=== PATIENT | male | born 1960 | race Caucasian/White ===

== ENCOUNTER 2018-11-22 08:10 | Observation (INO) | payer BC ==
[~2018-11-22] VITALS: Ht 180.3 cm; Wt 103.2 kg
--- OUTSIDE RECORDS SUMMARY | 2018-11-22 08:12 | XMS REPORT ---
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
--- OUTSIDE RECORDS SUMMARY | 2018-11-22 08:12 | XMS REPORT ---
Author Mayito Simmons Organization [employer] Address Unknown Phone Unavailable Care Team Providers Care Network Announcer Name Role Phone Mayito Rodriguez CP Unavailable Allergies No Known Allergies Problems Problem Type Condition Code Onset Dates Condition Status Problem Rheumatoid arthritis of multiple sites without rheumatoid factor M06.09 Active Problem Other manager entry (current) drug therapy Z79.899 Active Problem Neck pain M54.2 Active Problem Hypothyroidism E03.9 Active Medications No Known Medications Results No Known Results Summary Purpose [employer] Submission
--- OUTSIDE RECORDS SUMMARY | 2018-11-22 08:12 | XMS REPORT ---
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
--- OUTSIDE RECORDS SUMMARY | 2018-11-22 08:12 | XMS REPORT | Continuity of Care Document ---
Author Author [facility] Address Unknown Phone Unavailable Problems Problem Status Onset Date Classification Date Reported Comments Source Rheumatoid arthritis of multiple sites without rheumatoid factor Active Diagnosis 08/31/2018 Emilio Rodriguez Other shelter drug therapy Active Problem 08/31/2018 Emilio Rodriguez Neck pain Active Problem 08/31/2018 Emilio Rodriguez Hypothyroidism Active Diagnosis 08/31/2018 Emilio Rodriguez Hand pain, left Active Diagnosis 05/09/2017 Emilio Rodriguez Hand pain, right Active Diagnosis 05/09/2017 Emilio Rodriguez Encounter for screening for malignant neoplasm of prostate Active Diagnosis 08/31/2018 Emilio Rodriguez Long-term use of other medications - High Risk Active Problem 10/28/2015 Emilio Rodriguez Rheumatoid arthritis Active Problem 10/28/2015 Emilio Rodriguez Pain, neck Active Problem 10/28/2015 Emilio Rodriguez Unspecified vitamin D deficiency Active Problem 10/28/2015 Emilio Rodriguez Medications Medication Details Route Status Patient Instructions Ordering Provider Order Date Source Ibuprofen TAKE 1 TABLET BY MOUTH WITH FOOD OR MILK 3 TIMES DAILY NEEDED Orally Active 600 MG Orally Three times a day [place] 01/29/2018 Emilio Rodriguez Folic Acid 1 tablet Orally Active 1MG Orally Once a day [place] 01/19/2017 Emilio Rodriguez Ibuprofen 1 tablet as needed Orally Active 600MG Milligram Orally every 6 hrs [place] 07/20/2016 Emilio Rodriguez Folic Acid 1 tablet Orally Active 1MG Orally Once a day [place] 10/04/2015 Emilio Rodriguez Methotrexate 6 tablets Orally Active 2.5mg Orally Once a week [place] 10/04/2015 Emilio Rodriguez Ibuprofen 1 tablet as needed Orally Active 600MG Milligram Orally every 6 hrs [place] 10/04/2015 Emilio Rodriguez [place] 3-6-9 Fatty Acids as directed Orally Active 400 MG Orally Once a day [place] Emilio Rodriguez Synthroid 1 tablet Orally Active 175 MCG Orally Once a day [place] mEilio Rodriguez Folic Acid 1 tablet Orally Active 1MG Orally Once a day [place] Emilio Rodriguez Ibuprofen TAKE 1 TABLET BY MOUTH WITH FOOD OR MILK 3 TIMES DAILY NEEDED Orally Active 600 MG Orally Three times a day Rodriguez Emilio Rodriguez Ibuprofen 1 tablet with food or milk as needed Orally Active 600 MG Orally Three times a day Michael Rodriguez Synthroid 1 tablet Orally Active 175 MCG Orally Once a day Rodriguez Emilio Rodriguez [place] 3-6-9 Fatty Acids as directed Orally Active 400 MG Orally Twice a day Rodriguez Emilio Rodriguez Folic Acid 1 tablet Orally Active 1 MG Orally Once a day [place] Emilio Rodriguez Ibuprofen 1 tablet as needed Orally Active 600MG Milligram Orally every 6 hrs Rodriguez Emilio Rodriguez Methotrexate 4 tablets Orally Active 2.5 MG Orally Once a week Rodriguez Emilio Rodriguez Allergies, Adverse Reactions, Alerts Substance Category Reaction Severity Reaction type Status Date Reported Comments Source Humira Adverse Reaction infections Adverse Reaction Active 08/21/2018 Emilio Rodriguez Codeine Adverse Reaction Info Not Available Adverse Reaction Active 08/21/2018 Emilio Rodriguez Immunizations Immunization Date Given Site Status Last Updated Comments Source Results Order Name Results Value Reference Range Date Interpretation Comments Source Vital Signs Vital Sign Value Date Comments Source Weight 226 08/21/2018 Emilio Rodriguez Height 72 08/21/2018 Emilio Rodriguez Temperature Oral (F) 96.8 F 08/21/2018 Emilio Rodriguez Heart Rate 68 08/21/2018 Emilio Rodriugez Diastolic (mm Hg) 82 08/21/2018 Emilio Rodriguez Systolic (mm Hg) 126 08/21/2018 Emilio Rodriguez Weight 208.7 08/21/2017 Emilio Rodriguez Height 72 08/21/2017 Emilio Rodriguez Temperature Oral (F) 97.0 F 08/21/2017 Emilio Rodriguez Heart Rate 72 08/21/2017 Emilio Rodriguez Diastolic (mm Hg) 60 08/21/2017 Emilio Rodriguez Systolic (mm Hg) 100 08/21/2017 Emilio Rodriguez Weight 217 10/12/2015 Emilio Rodriguez Height 70 10/12/2015 Emilio Rodriguez Temperature Oral (F) 97.0 F 10/12/2015 Emilio Rodriguez Heart Rate 74 10/12/2015 Emilio Rodriguez Diastolic (mm Hg) 68 10/12/2015 Emilio Rodriguez Systolic (mm Hg) 124 10/12/2015 Emilio Rodriguez Weight 209 04/07/2015 Emilio Rodriguez Height 71 04/07/2015 Emilio Rodriguez Temperature Oral (F) 98.0 F 04/07/2015 Emilio Rodriguez Heart Rate 76 04/07/2015 Emilio Michael Diastolic (mm Hg) 80 04/07/2015 Emilio Michael Systolic (mm Hg) 118 04/07/2015 Emilio Michael Encounters Location Location Details Encounter Type Encounter Number Reason For Visit Attending Provider ADM Date DC Date Status Source Mayito Rodriguez MD Refill [id number] 01/02/2015 01/02/2015 Emilio Rodriguez MD Refill [id number] 01/02/2015 01/02/2015 Emilio Rodriguez MD Refill [id number] 01/02/2015 01/02/2015 Emilio Rodriguez MD Refill [id number] 01/02/2015 01/02/2015 Emilio Rodriguez MD Refill [id number] 01/02/2015 01/02/2015 Emilio Rodriguez MD Refill [id number] 01/02/2015 01/02/2015 Emilio Rodriguez MD Refill [id number] 01/02/2015 01/02/2015 Emilio Rodriguez MD Refill [id number] 01/02/2015 01/02/2015 Emilio Rodriguez MD Refill [id number] 01/02/2015 01/02/2015 Emilio Rodriguez MD refill request [id number] 01/21/2015 01/21/2015 Emilio Rodriguez MD refill request [id number] 01/21/2015 01/21/2015 Emilio Rodriguez MD refill request [id number] 01/21/2015 01/21/2015 Emilio Rodriguez MD refill request [id number] 01/21/2015 01/21/2015 Emilio Rodriguez MD refill request [id number] 01/21/2015 01/21/2015 Emilio Rodriguez MD refill request [id number] 01/21/2015 01/21/2015 Emilio Rodriguez MD refill request [id number] 01/21/2015 01/21/2015 Emilio Rodriguez MD refill request [id number] 01/21/2015 01/21/2015 Emilio Rodriguez MD refill request [id number] 01/21/2015 01/21/2015 Emilio Rodriguez MD f/u [id number] 04/07/2015 04/07/2015 Emilio Rodriguez MD f/u [id number] 04/07/2015 04/07/2015 Emilio Rodriguez MD f/u [id number] 04/07/2015 04/07/2015 Emilio Rodriguez MD f/u [id number] 04/07/2015 04/07/2015 Emilio Rodriguez MD f/u [id number] 04/07/2015 04/07/2015 Emilio Rodriguez MD f/u [id number] 04/07/2015 04/07/2015 Emilio Rodriguez MD f/u [id number] 04/07/2015 04/07/2015 Emilio Rodriguez MD f/u [id number] 04/07/2015 04/07/2015 Emilio Rodriguez MD f/u [id number] 04/07/2015 04/07/2015 Emilio Rodriguez MD Pt been calling, No call back [id number] 04/29/2015 04/29/2015 Emilio Rodriguez MD Pt been calling, No call back [id number] 04/29/2015 04/29/2015 Emilio Rodriguez MD Pt been calling, No call back [id number] 04/29/2015 04/29/2015 Emilio Rodriguez MD Pt been calling, No call back [id number] 04/29/2015 04/29/2015 Emilio Rodriguez MD Pt been calling, No call back [id number] 04/29/2015 04/29/2015 Emilio Rodriguez MD Pt been calling, No call back [id number] 04/29/2015 04/29/2015 Emilio Rodriguez MD Pt been calling, No call back [id number] 04/29/2015 04/29/2015 Emilio Rodriguez MD Pt been calling, No call back [id number] 04/29/2015 04/29/2015 Emilio Rodriguez MD Pt been calling, No call back [id number] 04/29/2015 04/29/2015 Emilio Rodriguez MD mri cervical spine [id number] 04/30/2015 04/30/2015 Emilio Rodriguez MD mri cervical spine [id number] 04/30/2015 04/30/2015 Emilio Rodriguez MD mri cervical spine [id number] 04/30/2015 04/30/2015 Emilio Rodriguez MD mri cervical spine [id number] 04/30/2015 04/30/2015 Emilio Rodriguez MD mri cervical spine [id number] 04/30/2015 04/30/2015 Emilio Rodriguez MD mri cervical spine [id number] 04/30/2015 04/30/2015 Emilio Rodriguez MD mri cervical spine [id number] 04/30/2015 04/30/2015 Emilio Rodriguez MD mri cervical spine [id number] 04/30/2015 04/30/2015 Emilio Rodriguez MD mri cervical spine [id number] 04/30/2015 04/30/2015 Emilio Rodriguez MD f/u [id number] 10/12/2015 10/12/2015 Emilio Rodriguez MD f/u [id number] 10/12/2015 10/12/2015 Emilio Rodriguez MD f/u [id number] 10/12/2015 10/12/2015 Emilio Rodriguez MD f/u [id number] 10/12/2015 10/12/2015 Emilio Rodriguez MD f/u [id number] 10/12/2015 10/12/2015 Emilio Rodriguez MD f/u [id number] 10/12/2015 10/12/2015 Emilio Rodriguez MD f/u [id number] 10/12/2015 10/12/2015 Emilio Rodriguez MD f/u [id number] 10/12/2015 10/12/2015 Emilio Rodriguez MD no show fee [id number] 10/27/2015 10/27/2015 Emilio Rodriguez MD no show fee [id number] 10/27/2015 10/27/2015 Emilio Rodriguez MD no show fee [id number] 10/27/2015 10/27/2015 Emilio Rodriguez MD no show fee [id number] 10/27/2015 10/27/2015 Emilio Rodriguez MD no show fee [id number] 10/27/2015 10/27/2015 Emilio Rodriguez MD Refill- Synthroid, Ibuprofen [id number] 10/27/2015 10/27/2015 Emilio Rodriguez MD Refill- Synthroid, Ibuprofen [id number] 10/27/2015 10/27/2015 Emilio Rodriguez MD Refill- Synthroid, Ibuprofen [id number] 10/27/2015 10/27/2015 Emilio Rodriguez MD Refill- Synthroid, Ibuprofen [id number] 10/27/2015 10/27/2015 Emilio Rodriguez MD Refill- Synthroid, Ibuprofen [id number] 10/27/2015 10/27/2015 Emilio Rodriguez MD no show fee [id number] 10/27/2015 10/27/2015 Emilio Rodriguez MD no show fee [id number] 10/27/2015 10/27/2015 Emilio Rodriguez MD Refill- Synthroid, Ibuprofen [id number] 10/27/2015 10/27/2015 Emilio Rodriguez MD Refill- Synthroid, Ibuprofen [id number] 10/27/2015 10/27/2015 Emilio Rodriguez MD Ibuprofen [id number] 06/07/2016 06/07/2016 Emilio Rodriguez MD Ibuprofen [id number] 06/07/2016 06/07/2016 Emilio Rodriguez MD Ibuprofen [id number] 06/07/2016 06/07/2016 Emilio Rodriguez MD Ibuprofen [id number] 06/07/2016 06/07/2016 Emilio Rodriguez MD Ibuprofen [id number] 06/07/2016 06/07/2016 Emilio Rodriguez MD LAB ORDERS [id number] 06/22/2016 06/22/2016 Emilio Rodriguez MD LAB ORDERS [id number] 06/22/2016 06/22/2016 Emilio Rodriguez MD LAB ORDERS [id number] 06/22/2016 06/22/2016 Emilio Rodriguez MD LAB ORDERS [id number] 06/22/2016 06/22/2016 Emilio Rodriguez MD Refill- Ibuprofen [id number] 07/20/2016 07/20/2016 Emilio Rodriguez MD Refill- Ibuprofen [id number] 07/20/2016 07/20/2016 Emilio Rodriguez MD Refill- Ibuprofen [id number] 07/20/2016 07/20/2016 Emilio Rodriguez MD Medication Refills [id number] 08/11/2016 08/11/2016 Emilio Rodriguez MD Medication Refills [id number] 08/11/2016 08/11/2016 Emilio Rodriguez MD X RAY ORDER [id number] 08/26/2016 08/26/2016 Emilio Rodriguez Procedures Procedure Code Date Perfomer Comments Source
--- OUTSIDE RECORDS SUMMARY | 2018-11-22 08:12 | XMS REPORT ---
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
--- OUTSIDE RECORDS SUMMARY | 2018-11-22 08:12 | XMS REPORT ---
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
--- OUTSIDE RECORDS SUMMARY | 2018-11-22 08:13 | XMS REPORT ---
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.899 Active Problem Neck pain M54.2 Active Assessment Rheumatoid arthritis of multiple sites without rheumatoid factor M06.09 Active Assessment Other care home (current) drug therapy Z79.899 Active Problem Rheumatoid arthritis of multiple sites without rheumatoid factor M06.09 Active Medications Medication Code System Code Instructions Start Date End Date Status Dosage Orange 3-6-9 Fatty Acids NDC 0 400 MG Orally Once a day Active as directed Synthroid NDC 56873168452 175 MCG Orally Once a day Active 1 tablet Folic Acid NDC 96353531630 1MG Orally Once a day Active 1 tablet Ibuprofen NDC 78871536822 600 MG Orally Three times a day Active TAKE 1 TABLET BY MOUTH WITH FOOD OR MILK 3 TIMES DAILY NEEDED Vital Signs Date/Time: Aug 21, 2018 BMI 30.65 Index Weight 226 lbs Height 72 in Temperature 96.8 F Cardiac Monitoring Heart Rate 68 /min Blood Pressure Diastolic 82 mm Hg Blood Pressure Systolic 126 mm Hg Results No Known Results Summary Purpose [employer] Submission
--- OUTSIDE RECORDS SUMMARY | 2018-11-22 08:13 | XMS REPORT ---
Author Author Mayito Rodriguez [employer] Address Unknown Phone Unavailable Care Team Providers Care Electronics Mechanic Name Role Phone Mayito Rodriguez CP Unavailable Encounters Encounter Location Date mri cervical spine Mayito Rodriguez MD April 30, 2015 f/u Mayito Rodriguez MD April 07, 2015 f/u Mayito Rodriguez MD Oct 12, 2015 Refill- Synthroid, Ibuprofen Mayito Rodriguez MD Oct 27, 2015 Refill Mayito Rodriguez MD Jan 02, 2015 refill request Mayito Rodriguez MD January 21, 2015 Pt been calling, No call back Mayito Rodriguez MD April 29, 2015 no show fee Mayito Rodriguez MD Oct 27, 2015 Problems Problem Type Condition ICD-9 Code Onset Dates Condition Status Problem 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 NONE Oct 12, 2015 Tobacco Use: . Are you a:: never smoker Oct 12, 2015 Caffeine: yes. 1-5 Oct 12, 2015 Alcohol: socially. Oct 12, 2015 Summary Purpose [employer] Submission
--- OUTSIDE RECORDS SUMMARY | 2018-11-22 08:13 | XMS REPORT ---
Author Mayito Simmons [facility] [employer] Address Unknown Phone Unavailable Care Team Providers Care Instructor Adjunct Surgical Technician Name Role Phone Mayito Rodriguez CP Unavailable Encounters Encounter Location Date mri cervical spine Mayito Rodriguez MD April 30, 2015 f/u Mayito Rodriguez MD April 07, 2015 f/u Mayito Rodriguez MD Oct 12, 2015 Refill- Synthroid, Ibuprofen Myaito Rodriguez MD Oct 27, 2015 Refill Mayito Rodriguez MD Jan 02, 2015 refill request Mayito Rodriguez MD January 21, 2015 Pt been calling, No call back Mayito Rodriguez MD April 29, 2015 LAB ORDERS Mayito Rodriguez MD Jun 22, 2016 no show fee Mayito Rodriguez MD Oct 27, 2015 Ibuprofen Mayito Rodriguez MD Jun 07, 2016 Problems Problem Type Condition ICD-9 Code Onset Dates Condition Status Problem Other manager intermediate (current) drug therapy Z79.899 Active Problem Hypothyroidism E03.9 Active Problem Rheumatoid arthritis of multiple sites without rheumatoid factor M06.09 Active Assessment Rheumatoid arthritis of multiple sites without rheumatoid factor M06.09 Active Social History Social History Element Qualifiers Date Reported Illicit Drugs . NONE Jun 08, 2016 Tobacco Use: . Are you a:: never smoker Jun 08, 2016 Caffeine: yes. 1-5 Jun 08, 2016 Alcohol: socially. Jun 08, 2016 Summary Purpose [employer] Submission
--- OUTSIDE RECORDS SUMMARY | 2018-11-22 08:13 | XMS REPORT ---
Author Mayito Simmons [facility] [employer] Address Unknown Phone Unavailable Care Team Providers Care Customs Manager Name Role Phone Mayito Rodriguez CP Unavailable Allergies, Adverse Reactions, Alerts Substance Reaction Event Type Humira infections Non Drug Allergy Codeine Info Not Available Non Drug Allergy Encounters Encounter Location Date mri cervical spine Mayito Rodriguez MD April 30, 2015 f/u Mayito Rodriguez MD April 07, 2015 Refill Mayito Rodriguez MD Jan 02, 2015 refill request Mayito Rodriguez MD January 21, 2015 Pt been calling, No call back Mayito Rodriguez MD April 29, 2015 Problems Problem Type Condition ICD-9 Code Onset Dates Condition Status Assessment Unspecified vitamin D deficiency 268.9 Active Problem Unspecified vitamin D deficiency 268.9 Active Problem Long-term (current) use of other medications - High Risk V58.69 Active Problem Pain, neck 723.1 Active Assessment Long-term (current) use of other medications - High Risk V58.69 Active Assessment Pain, neck 723.1 Active Problem Rheumatoid arthritis 714.0 Active Assessment Rheumatoid arthritis 714.0 Active Medications Medication Code System Code Instructions Start Date End Date Status Dosage Folic Acid [facility] [id number] 1MG Orally Once a day Oct 04, 2015 Active 1 tablet Methotrexate Unknown 0 2.5mg Orally Once a week Oct 04, 2015 Active 6 tablets [place]eda 3-6-9 Fatty Acids Unknown 0 400 MG Orally Twice a day Active as directed Synthroid [facility] [address]-12 150 MCG Orally Once a day Active 1 tablet Ibuprofen Unknown 0 600MG Milligram Orally every 6 hrs Oct 04, 2015 Active 1 tablet as needed Social History Social History Element Qualifiers Date Reported Illicit Drugs . NONE April 07, 2015 Tobacco Use: . Are you a:: never smoker April 07, 2015 Caffeine: yes. 1-5 April 07, 2015 Alcohol: socially. April 07, 2015 Vital Signs Date/Time: April 07, 2015 Weight 209 lbs Height 71 in Temperature 98.0 F Cardiac Monitoring Heart Rate 76 /min Blood Pressure Diastolic 80 mm Hg Blood Pressure Systolic 118 mm Hg Summary Purpose [employer] Submission
--- OUTSIDE RECORDS SUMMARY | 2018-11-22 08:13 | XMS REPORT ---
Author Mayito Simmons Organization [employer] Address Unknown Phone Unavailable Care Team Providers Care Forcer Maker Name Role Phone Mayito Rodriguez CP Unavailable Allergies No Known Allergies Problems Problem Type Condition Code Onset Dates Condition Status Problem Hypothyroidism E03.9 Active Problem Other senior care (current) drug therapy Z79.899 Active Problem Neck pain M54.2 Active Problem Rheumatoid arthritis of multiple sites without rheumatoid factor M06.09 Active Medications Medication Code System Code Instructions Start Date End Date Status Dosage Ibuprofen [facility] 95645277476 600 MG Orally Three times a day January 29, 2018 Active TAKE 1 TABLET BY MOUTH WITH FOOD OR MILK 3 TIMES DAILY NEEDED Results No Known Results Summary Purpose [employer] Submission
--- OUTSIDE RECORDS SUMMARY | 2018-11-22 08:13 | XMS REPORT ---
Author Author Mayito Rodriguez eClinicalWorks Address Unknown Phone Unavailable Care Team Providers Care Molding Machine Tender Name Role Phone Mayito Rodriguez CP Unavailable Encounters Encounter Location Date mri cervical spine Mayito Rodriguez MD April 30, 2015 f/u Mayito Rodriguez MD April 07, 2015 f/u Mayito Rodriguez MD Oct 12, 2015 Refill- Synthroid, Ibuprofen Mayito Rodriguez MD Oct 27, 2015 Refill Mayito Rodriguez MD Jan 02, 2015 Refill- Ibuprofen Mayito Rodriguez MD Jul 20, 2016 refill request Mayito Rodriguez MD January 21, 2015 Medication Refills Mayito Rodriguez MD Aug 11, 2016 Pt been calling, No call back Mayito Rodriguez MD April 29, 2015 LAB ORDERS Mayito Rodriguez MD Jun 22, 2016 no show fee Mayito Rodriguez MD Oct 27, 2015 Ibuprofen Mayito Rodriguez MD Jun 07, 2016 Problems Problem Type Condition ICD-9 Code Onset Dates Condition Status Problem Rheumatoid arthritis of multiple sites without rheumatoid factor M06.09 Active Problem Other 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 terminal agent (current) drug therapy Z79.899 Active Problem Neck pain M54.2 Active Problem Hypothyroidism E03.9 Active Assessment Rheumatoid arthritis of multiple sites without rheumatoid factor M06.09 Active Medications Medication Code System Code Instructions Start Date End Date Status Dosage Methotrexate MEDISPAN [address]-77 2.5 MG Orally Once a week Active 4 tablets Ibuprofen Unknown 0 600MG Milligram Orally every 6 hrs Jul 20, 2016 Oct 30, 2016 Active 1 tablet as needed [place] 3-6-9 Fatty Acids Unknown 0 400 MG Orally Twice a day Active as directed Social History Social History Element Qualifiers Date Reported Illicit Drugs . NONE Aug 01, 2016 Tobacco Use: . Are you a:: never smoker Aug 01, 2016 Caffeine: yes. 1-5 Aug 01, 2016 Alcohol: socially. Aug 01, 2016 Summary Purpose eClinicalWorks Submission
--- OUTSIDE RECORDS SUMMARY | 2018-11-22 08:13 | XMS REPORT ---
Author Mayito Simmons e[employer] Address Unknown Phone Unavailable Care Team Providers Care Skinner Pelts Name Role Phone Mayito Rodriguez CP Unavailable Encounters Encounter Location Date mri cervical spine Mayito Rodriguez MD April 30, 2015 f/u Mayito Rodriguez MD April 07, 2015 f/u Mayito Rodriguez MD Oct 12, 2015 Refill- Synthroid, Ibuprofen Mayito Rodriguez MD Oct 27, 2015 Refill Mayito Rodrgiuez MD Jan 02, 2015 refill request Mayito Rodriguez MD January 21, 2015 Pt been calling, No call back Mayito Rodriguez MD April 29, 2015 no show fee Mayito Rodriguez MD Oct 27, 2015 Ibuprofen Mayito Rodriguez MD Jun 07, 2016 Problems Problem Type Condition ICD-9 Code Onset Dates Condition Status Problem Other mcfp (current) drug therapy Z79.899 Active Problem Hypothyroidism E03.9 Active Problem Rheumatoid arthritis of multiple sites without rheumatoid factor M06.09 Active Assessment Other corporate human resources manager (current) drug therapy Z79.899 Active Assessment Rheumatoid arthritis of multiple sites without rheumatoid factor M06.09 Active Medications Medication Code System Code Instructions Start Date End Date Status Dosage Ibuprofen Unknown 0 600MG Milligram Orally every 6 hrs Active 1 tablet as needed Social History Social History Element Qualifiers Date Reported Illicit Drugs . NONE Jun 08, 2016 Tobacco Use: . Are you a:: never smoker Jun 08, 2016 Caffeine: yes. 1-5 Jun 08, 2016 Alcohol: socially. Jun 08, 2016 Summary Purpose eClinicalWorks Submission
--- OUTSIDE RECORDS SUMMARY | 2018-11-22 08:13 | XMS REPORT ---
Author Author Mayito Rodriguez [employer] Address Unknown Phone Unavailable Care Team Providers Care Undercollar Baster Name Role Phone Mayito Rodriguez CP Unavailable [...] Code Onset Dates Condition Status Problem Other technician terminal and repeater (current) drug therapy Z79.899 Active Problem Hypothyroidism E03.9 Active Problem Rheumatoid arthritis of multiple sites without rheumatoid factor M06.09 Active Medications Medication Code System Code Instructions Start Date End Date Status Dosage Ibuprofen Unknown 0 600MG Milligram Orally every 6 hrs Jul 20, 2016 Active 1 tablet as needed Social History Social History Element Qualifiers Date Reported Illicit Drugs . NONE Jun 08, 2016 Tobacco Use: . Are you a:: never smoker Jun 08, 2016 Caffeine: yes. 1-5 Jun 08, 2016 Alcohol: socially. Jun 08, 2016 Summary Purpose eClinicalWorks Submission
--- OUTSIDE RECORDS SUMMARY | 2018-11-22 08:13 | XMS REPORT ---
Author Mayito Simmons [facility] eClinicalWorks Address Unknown Phone Unavailable Care Team Providers Care Internet Sales Representative Name Role Phone Mayito Rodriguez CP Unavailable [...] ICD-9 Code Onset Dates Condition Status Assessment Rheumatoid arthritis of multiple sites without rheumatoid factor M06.09 Active Problem Other termite technician (current) drug therapy Z79.899 Active Problem Hypothyroidism E03.9 Active Problem Rheumatoid arthritis of multiple sites without rheumatoid factor M06.09 Active Problem Long-term (current) use of other medications - High Risk V58.69 Active Problem Rheumatoid arthritis 714.0 Active Problem Pain, neck 723.1 Active Problem Unspecified vitamin D deficiency 268.9 Active Medications Medication Code System Code Instructions Start Date End Date Status Dosage Synthroid MEDISPAN [address]-42 150 MCG Orally Once a day Active 1 tablet Ibuprofen Unknown 0 600MG Milligram Orally every 6 hrs Active 1 tablet as needed Social History Social History Element Qualifiers Date Reported Illicit Drugs . NONE Oct 12, 2015 Tobacco Use: . Are you a:: never smoker Oct 12, 2015 Caffeine: yes. 1-Oct 12, 2015 Alcohol: socially. Oct 12, 2015 Summary Purpose eClinicalWorks Submission
--- OUTSIDE RECORDS SUMMARY | 2018-11-22 08:13 | XMS REPORT ---
Author Author Mayito Rodriguez Organization e[employer]Works Address Unknown Phone Unavailable Care Team Providers Care Professional Security Officer Name Role Phone Mayito Rodriguez CP Unavailable Allergies No Known Allergies Problems Problem Type Condition Code Onset Dates Condition Status Problem Rheumatoid arthritis of multiple sites without rheumatoid factor M06.09 Active Problem Other intermediate card tender (current) drug therapy Z79.899 Active Problem Neck pain M54.2 Active Assessment Hand pain, left M79.642 Active Assessment Hand pain, right M79.641 Active Problem Hypothyroidism E03.9 Active Assessment Rheumatoid arthritis of multiple sites without rheumatoid factor M06.09 Active Medications No Known Medications Results No Known Results Summary Purpose eClinicalWorks Submission
--- OUTSIDE RECORDS SUMMARY | 2018-11-22 08:13 | XMS REPORT ---
Author Author Mayito Rodriguez [facility] e[employer] Address Unknown Phone Unavailable Care Team Providers Care Director Of Retail Merchandising Name Role Phone Mayito Rodriguez CP Unavailable Allergies, Adverse Reactions, Alerts Substance Reaction Event Type Humira infections Non Drug Allergy Codeine Info Not Available Non Drug Allergy Encounters Encounter Location Date mri cervical spine Mayito Rodriguez MD April 30, 2015 f/u Mayito Rodriguez MD April 07, 2015 f/u Mayito Rodriguez MD Oct 12, 2015 Refill Mayito Rodriguez MD Jan 02, 2015 refill request Mayito Rodriguez MD January 21, 2015 Pt been calling, No call back Mayito Rodriguez MD April 29, 2015 Problems Problem Type Condition ICD-9 Code Onset Dates Condition Status Assessment Hypothyroidism E03.9 Active Assessment Rheumatoid arthritis of multiple sites without rheumatoid factor M06.09 Active Assessment Other hand embroiderer (current) drug therapy Z79.899 Active Problem Other hand embroiderer (current) drug therapy Z79.899 Active Problem Hypothyroidism E03.9 Active Problem Rheumatoid arthritis of multiple sites without rheumatoid factor M06.09 Active Problem Long-term (current) use of other medications - High Risk V58.69 Active Problem Rheumatoid arthritis 714.0 Active Problem Pain, neck 723.1 Active Problem Unspecified vitamin D deficiency 268.9 Active Medications Medication Code System Code Instructions Start Date End Date Status Dosage Synthroid MEDISPAN [address]-71 150 MCG Orally Once a day Active 1 tablet [place] 3-6-9 Fatty Acids Unknown 0 400 MG Orally Twice a day Active as directed Folic Acid MEDISPAN [address]-15 1 MG Orally Once a day Active 1 tablet Ibuprofen Unknown 0 600MG Milligram Orally every 6 hrs Active 1 tablet as needed Social History Social History Element Qualifiers Date Reported Illicit Drugs . NONE Oct 12, 2015 Tobacco Use: . Are you a:: never smoker Oct 12, 2015 Caffeine: yes. 1-5 Oct 12, 2015 Alcohol: socially. Oct 12, 2015 Vital Signs Date/Time: Oct 12, 2015 Weight 217 lbs Height 70 in Temperature 97.0 F Cardiac Monitoring Heart Rate 74 /min Blood Pressure Diastolic 68 mm Hg Blood Pressure Systolic 124 mm Hg Summary Purpose eClinicalWorks Submission
--- OUTSIDE RECORDS SUMMARY | 2018-11-22 08:13 | XMS REPORT ---
Author Author Mayito Rodriguez eClinicalWorks Address Unknown Phone Unavailable Care Team Providers Care Clarification Operator Name Role Phone Mayito Rodriguez CP [...] Ibuprofen Mayito Rodriguez MD Jun 07, 2016 X RAY ORDER Mayito Rodriguez MD Aug 26, 2016 Refill- Ibuprofen Mayito Rodriguez MD Jul 20, 2016 Medication Refills Mayito Rodriguez MD Aug 11, 2016 Problems Problem Type Condition ICD-9 Code Onset Dates Condition Status Problem Rheumatoid arthritis of multiple sites without rheumatoid factor M06.09 Active Problem Other alf (current) drug therapy Z79.899 Active Problem Neck pain M54.2 Active Problem Hypothyroidism E03.9 Active Social History Social History Element Qualifiers Date Reported Illicit Drugs . NONE Aug 01, 2016 Tobacco Use: . Are you a:: never smoker Aug 01, 2016 Caffeine: yes. 1-5 Aug 01, 2016 Alcohol: socially. Aug 01, 2016 Summary Purpose eClinicalWorks Submission
--- OUTSIDE RECORDS SUMMARY | 2018-11-22 08:13 | XMS REPORT ---
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 [address]-09 600 MG Orally Three times a day Active 1 tablet with food or milk as needed Synthroid [facility] [address]-75 175 MCG Orally Once a day Active 1 tablet Folic Acid ND [id number] 1MG Orally Once a day Active 1 tablet Vital Signs Date/Time: Aug 21, 2017 BMI 28.30 Index Weight 208.7 lbs Height 72 in Temperature 97.0 F Cardiac Monitoring Heart Rate 72 /min Blood Pressure Diastolic 60 mm Hg Blood Pressure Systolic 100 mm Hg Results No Known Results Summary Purpose eClinicalWorks Submission
--- OUTSIDE RECORDS SUMMARY | 2018-11-22 08:13 | XMS REPORT ---
Author Mayito Simmons Organization eClinicalWorks Address Unknown Phone Unavailable Care Team Providers Care Diesel Engine Pipe Fitter Name Role Phone Mayito Rodriguez CP Unavailable [...]
[2018-11-22] MEDS ORDERED: ASPIRIN 81 MG CHEW TAB PO ONE ×2 (08:30→11:00)
[2018-11-22] MEDS ORDERED: ALBUTEROL/IPRATROPIUM 3 ML NEB NEB ONE ×2 (09:00)
--- NOTE | 2018-11-22 09:02 | NUR ---
RT CALLED FOR DUONED TREATMENT.
[2018-11-22 09:12] LABS: BASOPHILS # (AUTO) 0.1 (0.0-0.1); BASOPHILS % 0.6 % (0.0-1.0); EOSINOPHILS # (AUTO) 0.4 (0.0-0.4); EOSINOPHILS % 5.6 % (0.0-6.0); HEMATOCRIT 46.9 % (38.2-49.6); HEMOGLOBIN 16.6 g/dL (14.0-18.0); LYMPHOCYTES # (AUTO) 2.5 (1.0-3.2); LYMPHOCYTES % 32.4 % (18.0-39.1); MEAN CORPUSCULAR HEMOGLOBIN 31.9 pg (28-32); MEAN CORPUSCULAR HGB CONC 35.4 g/dL (31-35); MONOCYTES # (AUTO) 0.7 (0.2-0.8); MONOCYTES % 8.5 % (4.4-11.3); NEUTROPHILS # (AUTO) 4.1 (2.1-6.9); NEUTROPHILS % 52.5 % (38.7-80.0); PLATELET COUNT 259 x10e3/uL (140-360); RED BLOOD COUNT 5.21 x10e6/uL (4.3-5.7); RED CELL DISTRIBUTION WIDTH 12.3 % (11.7-14.4)
[2018-11-22 09:27] LABS: ALANINE AMINOTRANSFERASE 32 IU/L (0-55); ALBUMIN/GLOBULIN RATIO 1.2 (0.8-2.0); ALKALINE PHOSPHATASE 73 IU/L (40-150); BLOOD UREA NITROGEN 24 mg/dL (7-26); BUN/CREATININE RATIO 22 (6-25); CALCIUM 9.6 mg/dL (8.4-10.2); CARBON DIOXIDE 24 mmol/L (22-29); CHLORIDE 103 mmol/L (98-107); CREATINE KINASE 126 IU/L (30-200); CREATININE, SERUM 1.08 mg/dL (0.72-1.25); EST GLOMERULAR FILTRATION RATE > 60 ML/MIN (60-); GLUCOSE 122 mg/dL (74-118); LIPASE 45 U/L (8-78); SODIUM 138 mmol/L (136-145)
--- NOTE | 2018-11-22 10:21 | Diagnostic Imaging Report ---
EXAMINATION: CT scan of the chest with contrast. TECHNIQUE: Helical CT images of the chest were performed from the lung apices to the level of the adrenal glands after the intravenous administration of 100 cc of Isovue 300. Coronal and sagittal reformatted images were obtained. COMPARISON: None. CLINICAL HISTORY:Chest pain DISCUSSION: LINES/TUBES: None. LUNGS AND AIRWAYS: No consolidation. Scattered peripheral lower lung mild tree in bud nodularity. Mild bronchiectasis in the lower lungs. No filling defect within the pulmonary arteries. The airways are normal, without endobronchial lesions. PLEURA: No pneumothorax or pleural effusions. HEART AND MEDIASTINUM: The thyroid gland is normal. The heart and pericardium are within normal limits. LYMPH NODES: There is no mediastinal, hilar or axillary lymphadenopathy. ABDOMEN: Hypodensity BONES AND SOFT TISSUES: No acute bony abnormalities. IMPRESSION: No pulmonary embolism Mild scattered lower lung tree-in-bud opacities may reflect nonspecific bronchiolitis. Signed by: Dr. Moncho Perez M.D. on 11/22/2018 10:18 AM
--- NOTE | 2018-11-22 10:22 | Diagnostic Imaging Report ---
EXAMINATION: PA and lateral views of the chest. COMPARISON: None CLINICAL HISTORY: Chest pain DISCUSSION: Lines/tubes: None. Lungs: The lungs are well inflated and clear. No pneumonia or pulmonary edema. Pleura: No pleural effusion or pneumothorax. Heart and mediastinum: The cardiomediastinal silhouette is normal. Bones and soft tissues: No acute bony abnormalities. IMPRESSION: No acute cardiopulmonary abnormalities. Signed by: Dr. Moncho Perez M.D. on 11/22/2018 10:19 AM
--- NOTE | 2018-11-22 10:28 | Diagnostic Imaging Report ---
ADDENDUM #1 ADDENDUM: Dose modulation, iterative reconstruction, and/or weight based adjustment of the mA/kV was utilized to reduce the radiation dose to as low as reasonably achievable. Signed by: Dr. Monica Willingham MD on 11/22/2018 12:44 PM ORIGINAL REPORT EXAM: CT Abdomen and Pelvis WITH contrast INDICATION: Abdominal and left-sided chest pain. COMPARISON: None. TECHNIQUE: Abdomen and pelvis were scanned utilizing a multidetector helical scanner from the lung base to the pubic symphysis after administration of IV contrast. Coronal and sagittal reformations were obtained. Routine protocol was performed. Scan was performed when during portal venous phase. IV CONTRAST: 100 cc of Isovue 370. ORAL CONTRAST: Water COMPLICATIONS: None RADIATION DOSE: Total DLP: 1430.6 mGy*cm CTDIvol has been reviewed. It is below the limits set by the Radiation Protocol Committee (RPC). FINDINGS: LINES and TUBES: None. LOWER THORAX: Please refer to report from concurrently performed chest CT for intrathoracic findings HEPATOBILIARY: Subcentimeter hepatic lobe hypodensities are too small to characterize, but likely represents cysts. No biliary ductal dilation. GALLBLADDER: No radio-opaque stones or sludge. No wall thickening. SPLEEN: No splenomegaly. Calcified splenic granulomas. PANCREAS: No focal masses or ductal dilatation. ADRENALS: No adrenal nodules KIDNEYS/URETERS: Kidneys enhance symmetrically. No evidence of hydronephrosis, solid mass, or stone. GI TRACT: No evidence of wall thickening or distension. Per the electronic medical record, the patient is status post appendectomy. PELVIC ORGANS/BLADDER: Unremarkable. LYMPH NODES: No lymphadenopathy. VESSELS: There are scattered atherosclerotic calcifications in the aorta and branch vessels. PERITONEUM / RETROPERITONEUM: No free air or fluid. BONES AND SOFT TISSUES: No acute bony findings. CONCLUSION: No acute CT findings in the abdomen or pelvis. Please refer to report from concurrently performed chest CT for intrathoracic findings. Signed by: Dr. Monica Willingham MD on 11/22/2018 10:24 AM
[2018-11-22] MEDS ORDERED: PREDNISONE20 MG PO (10:36)
--- OUTSIDE RECORDS SUMMARY | 2018-11-22 12:11 | XMS REPORT ---
Author Author [facility] Address Unknown Phone Unavailable Care Team Providers Care Information Technology Architect Name Role Phone Andrey HOWARD Unavailable Unavailable Problems This patient has no known problems. Allergies, Adverse Reactions, Alerts This patient has no known allergies or adverse reactions. Medications This patient has no known medications. Results Test Description Test Time Test Comments Text Results Atomic Results Result Comments CHEST 2 VIEWS 2018-11-22 10:18:00 [place] [address] Patient Name: QASIM MELTON MR #: [id number] : 1960 Age/Sex: 58/M Req #: [id number] Adm Physician: Ordered by: LEONEL HOWARD MD Report #: [id number] Location: ER Room/Bed: Procedure: [id number] DX/CHEST 2 VIEWS Exam Date: 11/22/18 Exam Time: 1005 REPORT STATUS: Signed EXAMINATION: PA and lateral views of the chest. COMPAR BRIDGET: None CLINICAL HISTORY: Chest pain DISCUSSION: Lines/tubes: None. Lungs: The lungs are well inflated and clear. No pneumonia or pulmonary edema. Pleura: No pleural effusion or pneumothorax. Heart and mediastinum: The cardiomediastinal silhouette is normal. Bones and soft tissues: No acute bony abnormalities. IMPRESSION: No acute cardiopulmonary abnormalities. Signed by: Dr. Joshua Meza M.D. on 11/22/2018 10:19 AM Dictated By: JOSHUA MEZA MD 1019 Transcribed By: CRYSTAL on 11/22/18 1019 COPY TO: LEONEL HOWARD MD CT ABDOMEN/PELVIS W 2018-11-22 10:10:00 [place] [address] Patient Name: QASIM MELTON MR #: [id number] : 1960 Age/Sex: 58/M Req #: [id number] Adm Physician: Ordered by: LEONEL HOWARD MD Report #: [id number] Location: ER Room/Bed: Procedure: [id number] CT/CT ABDOMEN/PELVIS W Exam Date: 11/22/18 Exam Time: 0940 REPORT STATUS: Signed EXAM: CT Abdomen and Pelvis WITH contrast INDIC ATION: Abdominal and left-sided chest pain. COMPARISON: None. TECHNIQUE: Abdomen and pelvis were scanned utilizing a multidetector helical scanner from the lung base to the pubic symphysis after administration of IV contrast. Coronal and sagittal reformations were obtained. Routine protocol was performed. Scan was performed when during portal venous phase. IV CONTRAST: 100 cc of Isovue 370. ORAL CONTRAST: Water COMPLICATIONS: None RADIATION DOSE: Total DLP: 1430.6 mGy*cm CTDIvol has been reviewed. It is below the limits set by the Radiation Protocol Committee (RPC). FINDINGS: LINES and TUBES: None. LOWER THORAX: Please refer to report from concurrently performed chest CT for intrathoracic findings HEPATOBILIARY: Subcentimeter hepatic lobe hypodensities are too small to characterize, but likely represents cysts. No biliary ductal dilation. GALLBLADDER: No radio-opaque stones or sludge. No wall thickening. SPLEEN: No splenomegaly. Calcified splenic granulomas. PANCREAS: No focal masses or ductal dilatation. ADRENALS: No adrenal nodules KIDNEYS/URETERS: Kidneys enhance symmetrically. No evidence of hydronephrosis, solid mass, or stone. GI TRACT: No evidence of wall thickening or distension. Per the electronic medical record, the patient is status post appendectomy. PELVIC ORGANS/BLADDER: Unremarkable. LYMPH NODES: No lymphadenopathy. VESSELS: There are scattered atherosclerotic calcifications in the aorta and branch vessels. PERITONEUM / RETROPERITONEUM: No free air or fluid. BONES AND SOFT TISSUES: No acute bony findings. CONCLUSION: No acute CT findings in the abdomen or pelvis. Please refer to report from concurrently performed chest CT for intrathoracic findings. Signed by: Dr. Krystal Lopez MD on 11/22/2018 10:24 AM Dictated By: KRYSTAL LOPEZ MD 1024 Transcribed By: CRYSTAL on 11/22/18 1024 COPY TO: LEONEL HOWARD MD CT CHEST W 2018-11-22 10:09:00 [place] [address] Patient Name: QASIM MELTON MR #: [id number] : 1960 Age/Sex: 58/M Req #: [id number] Adm Physician: Ordered by: LEONEL HOWARD MD Report #: [id number] Location: ER Room/Bed: Procedure: [id number] CT/CT CHEST W Exam Date: 11/22/18 Exam Time: 0940 REPORT STATUS: Signed EXAMINATION: CT scan of the chest with contrast. TECHNIQUE: Helical CT images of the chest were performed from the lung apices to the level of the adrenal glands after the intravenous administration of 100 cc of Isovue 300. Coronal and sagittal reformatted images were obtained. COMPARISON: None. CLINICAL HISTORY:Chest pain DISCUSSION: LINES/TUBES: None. LUNGS AND AIRWAYS: No consolidation. Scattered peripheral lower lung mild tree in bud nodularity. Mild bronchiectasis in the lower lungs. No filling defect within the pulmonary arteries. The airways are normal, without endobronchial lesions. PLEURA: No pneumothorax or pleural effusions. HEART AND MEDIASTINUM: The thyroid gland is normal. The heart and pericardium are within normal limits. LYMPH NODES: There is no mediastinal, hilar or axillary lymphadenopathy. ABDOMEN: Hypodensity BONES AND SOFT TISSUES: No acute bony abnormalities. IMPRESSION: No pulmonary embolism Mild scattered lower lung tree-in-bud opacities may reflect nonspecific bronchiolitis. Signed by: Dr. Joshua Meza M.D. on 11/22/2018 10:18 AM Dictated By: JOSHUA MEZA MD 1018 Transcribed By: CRYSTAL on 11/22/18 1018 COPY TO: LEONEL HOWARD MD
[2018-11-22 13:17] LABS: CREATINE KINASE MB 2.9 ng/mL (0-5.0)
--- NOTE | 2018-11-22 15:20 | NUR ---
pt arrived to unit resp even and unlabored at this time no distress noted, pt has no c/o chest pain at this time , pt able to make needs known, no SOB indicated, pt has tele monitor place SR, pt oriented to room and call light, pt bed in lowest position, bed rails up times 2.
[2018-11-22 15:23] VITALS: BP 108/75
[2018-11-22] MEDS ORDERED: SODIUM CHLORIDE 0.9% 50ML 50 ML ONE (17:07)
[2018-11-22] MEDS ORDERED: IOPAMIDOL 370 MG/ML 200 ML INFUS..BTL INJ ONE (17:08)
[2018-11-22 17:25] VITALS: BP 108/75
--- NOTE | 2018-11-22 19:06 | NUR ---
report given to on coming nurse for continued care.
[2018-11-22 20:15] VITALS: BP 134/76
[2018-11-22 20:55] LABS: CREATINE KINASE MB 2.4 ng/mL (0-5.0)
[2018-11-23] VITALS (9 sets, daily range): BP systolic 99–136; BP diastolic 61–76
[2018-11-23 05:51] LABS: CREATINE KINASE MB 2.1 ng/mL (0-5.0)
[2018-11-23 06:42] LABS: CHOL/HDL RATIO 4.1 (3.9-4.7)
--- NOTE | 2018-11-23 07:20 | NUR ---
patient resting in bed, Alert with no distress, call light in reach, not in any distress
[2018-11-23] MEDS ORDERED: FOLIC ACID1 MG PO (09:23)
[2018-11-23] MEDS ORDERED: SYNTHROID125 MCG PO (09:23)
[2018-11-23] MEDS ORDERED: IBUPROFEN400 MG PO (09:23)
[2018-11-23] MEDS ORDERED: ALBUTEROL/IPRATROPIUM 3 ML NEB NEB PRN (09:30)
[2018-11-23] MEDS ORDERED: IBUPROFEN 600 MG TAB PO PRN (09:45)
--- NOTE | 2018-11-23 09:50 | Consultation ---
DATE OF CONSULTATION: CARDIOLOGY CONSULTATION REASON FOR CONSULTATION: Shortness of breath. HISTORY OF PRESENT ILLNESS: This is a 58-year-old man with no significant past medical history, who presented to the emergency department with progressively worsening shortness of breath. The patient states that his symptoms date back to approximately 6 months ago when he was in [facility], and developed severe progressively worsening exertional dyspnea. He was initiated on oxygen therapy at that point in time, and subsequently weaned off. Prior to that, he states that he was in his regular state of health. Denies any chest pressure, shortness of breath, lower extremity swelling, PND, orthopnea, or syncopal episodes. Now for the last couple of months with minimal exertion, he reports significant shortness of breath. He cannot finish his activities. Usual activities such as putting boxes in the attic were not tiresome to the patient. However, this has progressively worsened. He also reports left lower rib discomfort that does not occur with exertion. However, occurs occasionally. He also reports difficulty swallowing at times, and some sinus congestion. He otherwise has no other cardiovascular history. There is no premature coronary artery disease, sudden cardiac or heart failure in the family. Upon arrival here, he was noted to have normal laboratory values. Normal cardiac enzymes and normal CT of the chest and abdomen. Echocardiogram showed preserved left ventricular systolic function. REVIEW OF SYSTEMS: A 12-point review of systems was conducted, and is negative other than mentioned in the HPI. PAST MEDICAL HISTORY: No significant history. PAST SURGICAL HISTORY: None recent. PAST FAMILY HISTORY: No premature coronary artery disease or sudden cardiac . SOCIAL HISTORY: No illicit drug use or tobacco abuse. ALLERGIES: NO KNOWN DRUG ALLERGIES. MEDICATIONS: See medication reconciliation form. PHYSICAL EXAMINATION VITALS: Temperature is 97.1 degrees Fahrenheit, heart rate is 58, respirations are 18, blood pressure is 124/74, oxygen saturation is 98% on room air. GENERAL: He is a well-appearing, well-built middle-aged male in no apparent distress. HEENT: Head is normocephalic and atraumatic. Eyes: Extraocular movements are intact. Conjunctivae are clear. NECK: No JVD. No bruits. CARDIOVASCULAR: Regular rate and rhythm. No murmurs. LUNGS: Clear to auscultation bilaterally. No wheezing. No rales. ABDOMEN: Soft, nontender and nondistended. Normoactive bowel sounds. EXTREMITIES: No clubbing, cyanosis or edema. VASCULAR: Two plus pulses. SKIN: Warm, dry and intact. NEUROLOGIC: No focal deficits noted. Cranial nerves grossly intact. PSYCHIATRIC: Normal mood and affect. All laboratory data were reviewed. Troponin negative times 4. BNP is less than 10. LDL is 100, HDL 38. CT of the chest, abdomen and pelvis was within normal limits. No pulmonary embolism, aortic dissection or aortic aneurysm. There is no pleural effusions. There was mention of a mild scattered lower lung tree and opacities, may reflect nonspecific bronchiolitis. A 12-lead electrocardiogram was normal. IMPRESSION 1. Shortness of breath with dyspnea on exertion. 2. Atypical chest discomfort. 3. Abnormal computerized tomography showing possible bronchiolitis. 4. Gastroesophageal reflux disease. 5. Seasonal allergies. RECOMMENDATIONS: The patient's symptoms do not appear to be related to a cardiac issue. There is no evidence of acute coronary syndrome as his cardiac enzymes are within normal limits, and his 12-lead electrocardiogram shows no significant changes. His 2-D echocardiogram showed mild grade 1 diastolic dysfunction with normal systolic function and no valvular disease. Will schedule the patient for an exercise stress test with nuclear imaging to make sure this is not his anginal equivalent. Will defer other treatment for his gastroesophageal reflux disease and possible bronchiolitis to the primary team and pulmonology. Job#: [id number] T[place]LOR
--- NOTE | 2018-11-23 10:35 | Progress Note ---
DATE: INTERNAL MEDICINE PROGRESS NOTE Patient came here complaining of chest pain and shortness of breath. He was seen by pulmonology recently. PHYSICAL EXAMINATION VITALS: Blood pressure 124/74, temperature 97.1, heart rate 58 per minute, respiratory rate 18 per minute, oxygen saturation 98%. HEART: Regular rhythm. Normal S1 and S2 sounds. LUNGS: Clear bilaterally. ABDOMEN: Soft. EXTREMITIES: Show no evidence of cyanosis or trauma. BLOOD WORK: Sodium 138, potassium 4, chloride 103, CO2 24, BUN 24, creatinine 1.08, glucose 122. On the CBC, white blood count 7.85, hemoglobin 16.6, hematocrit 46.9, and platelet count 259,000. AST 33, ALT 32, total bilirubin 1.3, alkaline phosphatase 73. FINAL IMPRESSION 1. Chest pain. 2. Dyspnea. 3. Acute bronchitis. PLAN OF TREATMENT: Continue with prednisone 40 mg daily for 3 days. Prednisone 20 mg daily for 10 more days and then decrease to prednisone 10 mg daily for 3 days. Levothyroxine 100 mcg daily. 75 mcg daily. Continue ibuprofen 600 mg 3 times a day as needed for pain. Continue with albuterol and Atrovent q.4 h. as needed for shortness of breath. Aspirin 81 mg daily. He is going to go for a stress test today. Cardiology consult with Dr. Omkar Perez has been requested and Dr. Pravin Asencio for pulmonary. Job#: [id number] [place]
--- NOTE | 2018-11-23 10:44 | NUR ---
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 CM/SW role and care transitions discussed. Anticipated discharge plan discussed along with duration of care. CM/SW discussed patients right to make decisions in care. CM/SW work hours given. Patient lives: IN OWN HOUSE WITH FAMILY Admit/Transfer: VIA ED FROM HOME POA/Emergency contact: SILVINO [phone] Current/Previous Home Health: NONE PCP/Follow-up Care: [facility] Current/Previous DME: NONE Other Services: NONE Employment Status: NONE Areas of Concerns: NONE Referral Needs: NONE Education Needs: NONE IMM/VILLANUEVA given and signed (if applicable): NA Goal for discharge: RETURN HOME INDEPENDENTLY CM/SW left business card at the bedside with contact information. Name and number was also written on the patients whiteboard. Patient verbalized understanding of discussion. CM will follow-up with ongoing discharge and transition of care needs.
[2018-11-23] MEDS ORDERED: REGADENOSON 0.4 MG/5 ML SYR IV ONE (11:59)
--- NOTE | 2018-11-23 14:35 | NUR ---
patient back in room from Stress test, stable, denies any chest pain or shortness of breath. at bed side
[2018-11-23] MEDS ORDERED: IBUPROFEN 400 MG TAB PO SCH (15:00)
--- NOTE | 2018-11-23 16:47 | Cardiology Report ---
DATE OF STUDY: November 23, 2018 REASON FOR STUDY: Dyspnea on exertion and atypical chest pain. STUDY QUALITY: Adequate. STRESS SUMMARY: The patient underwent stress testing under the usual Andrew protocol manner. Patient exercised for a total of 4 minutes and 59 seconds, and reached a metabolic equivalence of 7. Baseline heart rate increased from 80 beats per minute to 170 beats per minute signifying 106% of his maximal predicted heart rate. Baseline blood pressure was 129/84 and berta to 202/103 indicating a hypertensive response to exercise. The patient developed significant shortness of breath during the procedure. The patient did not elicit any chest discomfort throughout the procedure. ELECTROCARDIOGRAPHIC FINDINGS: Baseline 12-lead electrocardiogram showed normal sinus rhythm with no significant S/T changes. There were no S/T changes noted at maximal stress. There were rare premature ventricular complexes throughout the procedure. MYOCARDIAL PERFUSION IMAGING: The patient received technitium-99 and sestamibi at rest and stress. Perfusion images showed no significant myocardial perfusion defects. There was normal wall motion with left ventricular systolic function of greater than 70%. CONCLUSIONS 1. Normal electrocardiographic exercise stress test. 2. Abnormal hemodynamic exercise stress test signifying a hypertensive response. 3. Rare premature ventricular complexes were noted throughout the study. 4. Normal myocardial perfusion imaging. There was no evidence of reversible ischemia or scars present. 5. Normal left ventricular function with an estimated ejection fraction greater than 70%. Job#: [id number] [place]
[2018-11-23] MEDS: PREDNISONE 20 MG TAB PO SCH (16:48)
--- NOTE | 2018-11-23 18:05 | NUR ---
Dr Herberth Mckeon covering for Dr Asencio had rounds, new lab orders recvd
--- NOTE | 2018-11-23 18:37 | NUR ---
patient sitting up in bed, tolerated with dinner, denies any Chest pain or Short of breath, call light in reach
--- NOTE | 2018-11-23 19:07 | Consultation ---
VERIFY DICTATING PHYSICIAN DATE OF CONSULTATION: PULMONARY CONSULTATION HISTORY OF PRESENT ILLNESS: Mr. Vincent is a 58-year-old pleasant gentleman who was in his relatively good health, started having dyspnea upon exertion for past few months. According to patient, he was on rheumatoid arthritis medication methotrexate, which he stopped himself almost a year ago. For the past few months, he started having the cough and worsening shortness of breath. He denies recent weight loss. Denies any recent traveling. He has been admitted in the hospital because of the chest pain and the shortness of breath. His cardiology workup has been negative according to patient today. REVIEW OF SYSTEMS: Denies fever, chills, or rigors. Minimum sputum production. Occasional cough is present. Shortness of breath upon exertion present. Denies nausea, vomiting, abdominal pain, diarrhea, constipation. Denies urinary urgency or frequency. Denies new skin rash. Patient has change of arthritis. PAST MEDICAL HISTORY: Significant for rheumatoid arthritis started at young age, being treated with gold salts in the past. SURGICAL HISTORY: No recent surgical history. SOCIAL HISTORY: Lives at home. Lives healthy lifestyle. No smoking. No alcohol. ALLERGIES: NO KNOWN DRUG ALLERGIES. PHYSICAL EXAMINATION VITAL SIGNS: Temperature 97.8, pulse of 86, respiratory rate is 18 to 20, blood pressure is 127/60 mmHg. HEAD AND NECK: Normocephalic, nontraumatic. Pupils reactive. Oral mucosa moist. Neck supple. CHEST: Symmetrical expansion. Mild wheezing present. No rales. No rhonchi. HEART: S1 and S2 audible. Regular rate and rhythm. ABDOMEN: Soft, obese, nontender. Bowel sounds present. EXTREMITIES: Changes of arthritis present. 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 Nonfocal. LABORATORY DATA: CAT scan of the chest reviewed personally. Patient has a nonspecific tree-in-bud opacity with most likely early bronchiectasis. WBC 7.8, hemoglobin 16.6, hematocrit 46.9, platelet count of 259,000. IMPRESSION 1. Rheumatoid arthritis-induced lung disease, most likely. 2. Rheumatoid arthritis. 3. Superimposed mixed connective tissue disease cannot be excluded. RECOMMENDATION: ESR rheumatoid factor, TAE, ANCA. Anti-Scl-70 will be appropriate. Continue on prednisone. Pulmonary function test as outpatient. From pulmonary standpoint, further workup will be initiated as an outpatient. He can be discharged home tomorrow. Job#: [id number] RTY
--- NOTE | 2018-11-23 19:10 | NUR ---
REPORT RECEIVED FROM OFF GOING NURSE, PT RESTING IN BED ALERT AND ORIENTED, NO DISTRESS NOTED, DENIES NEEDS, CALL LIGHT IN REACH, INSTRUCTED TO CALL WITH NEEDS
[2018-11-24] VITALS: BP 122/74
[2018-11-24 04:00] VITALS: BP 117/60
[2018-11-24] MEDS ORDERED: LEVOTHYROXINE SODIUM 100 MCG TAB PO SCH (06:00)
[2018-11-24] MEDS ORDERED: LEVOTHYROXINE SODIUM 75 MCG TAB PO SCH (06:00)
[2018-11-24] MEDS ORDERED: LEVOTHYROXINE SODIUM 125 MCG TAB PO SCH (06:30)
--- NOTE | 2018-11-24 06:44 | NUR ---
PT RESTING IN BED ALERT AND ORIENTED, NO DISTRESS NOTED, CALL LIGHT IN REACH, INSTRUCTED TO CALL WITH NEEDS, DENIES NEEDS
[2018-11-24 07:51] VITALS: BP 118/69
[2018-11-24] MEDS: PREDNISONE 20 MG TAB PO SCH (08:21)
[2018-11-24] MEDS ORDERED: PREDNISONE 20 MG TAB PO SCH ×4 (09:00→09:52)
[2018-11-24] MEDS ORDERED: FOLIC ACID 1 MG TAB PO SCH (09:00)
[2018-11-24 10:19] VITALS: BP 118/69
--- NOTE | 2018-11-24 11:17 | NUR ---
Notified GLOBAL POSITION SYSTEM TECHNICIAN of Dr Andrey Flynn (Dr Pollard) ,that patient was asking when he can be discharged since, cardiology cleared him to go Home. New order recvd from Dr Pollard that patient can Discharge home, continue same home medications, f/up with Dr Asencio in 1 week.
[2018-11-24 11:54] VITALS: BP 150/97
--- NOTE | 2018-11-24 12:16 | NUR ---
patient discharged home,, Alert with no distress, follow up instructions with Dr Perez and Dr Asencio given, IV canula removed with tip intact, no SS of infiltration noted, Tele box returned, at bed side giving ride, denies any pain or SOB, Transported via wheelchair to [facility]
--- NOTE | 2018-11-24 12:25 | Progress Note ---
DATE: CARDIOLOGY PROGRESS NOTE: SUBJECTIVE: The patient continues to report some shortness of breath that is worse with exertion and resolves when he sits down otherwise no chest pain, no palpitations, no dizziness, no vertigo, no palpitations. OBJECTIVE VITAL SIGNS: Temperature 96.5, pulse 88, respiratory rate 18, blood pressure 118/69, oxygen saturation 96% on room air. GENERAL: Alert and oriented x3, resting comfortably in bed, does not appear to be in any acute distress. NECK: Supple. No JVD noted. LUNGS: Clear to auscultation throughout. No wheezing. No rhonchi or crackles. ABDOMEN: Soft, nontender. EXTREMITIES: Lower extremities, no edema, 2+ pedal pulses. NEUROLOGICAL: Intact. No deficits noted. CARDIOVASCULAR MEDICATIONS: None at this moment. LABS: CK-MB 2.0, troponin 0.001. Creatinine kinase 127. TELEMETRY: Normal sinus rhythm. IMPRESSION 1. Dyspnea on exertion. 2. Typical chest discomfort. 3. Abnormal CT with possible bronchiolitis. 4. Gastroesophageal reflux disease. 5. Seasonal allergies. RECOMMENDATION: This patient had a normal exercise nuclear stress test yesterday. However, continues to have typical symptoms that resolves with rest. The patient would really like to go home. Cardiac enzymes at this time have been negative. Okay to discharge from a cardiac standpoint. The patient will follow up with Dr. Perez in the clinic in the coming week. We will plan to have diagnostic left heart cath in the coming weeks as outpatient. The patient is to continue and start aspirin as outpatient and monitor his symptoms. We will continue to follow this patient very closely. Dictated by: Sadie Dia NP Job#: [id number] [place]
[2018-11-26] MEDS ORDERED: PREDNISONE 20 MG TAB PO SCH (09:00)
[2018-11-29] MEDS ORDERED: PREDNISONE 10 MG TAB PO SCH (09:00)
== END 2018-11-24 12:07 | disposition home or self-care (01) ==
LOC: ER 08:10 → ERHOLD 12:09 → IMCU 15:17
DX: J20.9 Acute bronchitis, unspecified (principal); R07.89 Other chest pain; K21.9 Gastro-esophageal reflux disease without esophagitis; M06.9 Rheumatoid arthritis, unspecified; R91.8 Other nonspecific abnormal finding of lung field; J30.2 Other seasonal allergic rhinitis
CPT/HCPCS: 36415 ×2; 71046; 71260; 74177; 78452; 80053; 80061; 82550 ×2; 82553 ×2; 83690; 83880; 84484 ×2; 85025; 85651; 86021; 86039; 86200; 86431; 93005; 93017; 93306; 94640; 99284; A9502; G0378 ×3; J2785; J7512 ×2; Q9967